=== PATIENT | male | born 1975 | race Two or more races ===

== ENCOUNTER 2022-03-14 17:34 | Emergency (ER) | payer OTHER ==
[~2022-03-14] VITALS: Ht 180.3 cm; Wt 104.3 kg
== END 2022-03-14 22:17 | disposition home or self-care (01) ==
LOC: ER 17:34
DX: S82.842A Displaced bimalleolar fracture of left lower leg, initial encounter for closed fracture (principal); W22.8XXA Striking against or struck by other objects, initial encounter; Y93.9 Activity, unspecified; Y92.830 Public park as the place of occurrence of the external cause